=== PATIENT | female | born 1970 | race Asian ===

== ENCOUNTER → 2017-02-05 | Outpatient (CLI) | payer OTHER | LOC: BMCIMAGING 11:08 | DX: Z12.31 Encounter for screening mammogram for malignant neoplasm of breast (principal) | CPT/HCPCS: G0202 ==

== ENCOUNTER 2017-04-21 22:04 | Emergency (ER) | payer OTHER ==
[2017-04-21 22:40] VITALS: RESP 16
--- NOTE | 2017-04-21 23:28 | EDPHY ---
H & P Time Seen by Provider: 04/21/17 22:31 HPI/ROS: CHIEF COMPLAINT: Finger lacerations HISTORY OF PRESENT ILLNESS: 46-year-old female was caring a pyrexia discharge into the house when she stumbled and fell. She has multiple lacerations on both hands from the glass. Most significant laceration is at the distal pad of her 3rd finger, left hand. Bleeding is controlled with pressure. She did not strike her head. No loss of consciousness. No neck pain. No chest pain or shortness of breath. No abdominal pain. She reports this was a mechanical trip and fall. She has no significant wrist pain, elbow pain, or shoulder pain. She was otherwise well. REVIEW OF SYSTEMS: Aside from elements discussed in the HPI, a comprehensive 10-point review of systems was reviewed and is negative. PAST MEDICAL HISTORY: Patient denies. SOCIAL HISTORY: Nonsmoker. GENERAL APPEARANCE: Well-developed, well-nourished female. Appropriate. Alert. FOCUSED EXAM OF hands: Left hand: 2 cm Curvilinear laceration on the distal pad of the 3rd digit. Bleeding is controlled. Laceration is a flap-type laceration. Patient also has a 4 mm superficial laceration on the radial aspect , 4th digit, at the distal tip. Partial thickness laceration is present on the ulnar aspect of the right hand. Neurovascular exam: Brisk capillary refill to all fingers. Neurovascularly intact. Normal motor exam in all fingers. Smoking Status: Never smoked Constitutional: Initial Vital Signs Temperature (C) 36.6 C 04/21/17 22:15 Heart Rate 64 04/21/17 22:15 Respiratory Rate 16 04/21/17 22:15 Blood Pressure 101/64 04/21/17 22:15 O2 Sat (%) 97 04/21/17 22:15 O2 Delivery Mode Room Air Allergies/Adverse Reactions: ciprofloxacin [From Cipro] Allergy (Verified 04/21/17 22:33) Home Medications: Medication Instructions Recorded NK [No Known Home Meds] 04/21/17 Medical Decision Making Procedures: Procedure: Laceration repair. The 2 cm laceration on the 3rd digit, left hand, palmar aspect was anesthetized using digital block of lidocaine without epinephrine The wound was cleaned and irrigated per nursing and tech documentation. Laceration was then draped and explored. There were no deep structures involved. No tendon injury was identified. The wound was repaired with simple interrupted, 5 0 sutures. The wound repair was simple. The procedure was performed by myself. Patient is aware the laceration will have a scar. ED Course/Re-evaluation: 46 Year old female with multiple lacerations to her hands after dropping a pyrex dish when she stumbled coming inside of her house from the patio. Lacerations were cleaned and dressed per nursing and tech documentation. Laceration at the distal tip of the left middle finger was repaired with sutures. Please see the procedure note. Patient tolerated in the procedure well. Differential Diagnosis: Differential diagnosis for the patient's injury was considered including but not limited to contusion, abrasion, laceration, fracture, open fracture, or dislocation. Departure - Departure Disposition: Home, Routine, Self-Care Clinical Impression: Laceration Condition: Good Instructions: Finger Laceration (ED) Additional Instructions: Keep wound clean and dry. Clean suture line with a mixture of hydrogen peroxide and water. Apply a thin layer of antibiotic cream. Dress wound if desired. Suture removal in 10 days. Watch for signs of infection. No soaking wound in water. Showers are ok. No swimming until sutures are removed. Use Tylenol, ibuprofen, or Aleve as needed for pain. Return to emergency department if any concerns regarding infection. Referrals: Monica King MD [Primary Care Provider] - As per Instructions
[2017-04-21 23:55] VITALS: BP 107/63; PULSE 63; TEMP 98.1; O2SAT 96
== END 2017-05-02 14:42 | disposition home or self-care (01) ==
LOC: CED 22:04
PROC: 0HQGXZZ Repair Left Hand Skin, External Approach (ICD-10-PCS; principal; 2017-04-21)
DX: S61.213A Laceration without foreign body of left middle finger without damage to nail, initial encounter (principal); W25.XXXA Contact with sharp glass, initial encounter; Y92.009 Unspecified place in unspecified non-institutional (private) residence as the place of occurrence of the external cause

== ENCOUNTER → 2018-10-29 | Outpatient (CLI) | payer OTHER | LOC: BMCIMAGING 13:01 | PROVIDERS: ATTEND Obstetrics & Gynecology | DX: Z12.31 Encounter for screening mammogram for malignant neoplasm of breast (principal) ==

== ENCOUNTER 2019-02-14 18:05 | Emergency (ER) | payer OTHER ==
[2019-02-14 18:21] VITALS: BP 126/82
--- NOTE | 2019-02-14 18:36 | EDPHY ---
H & P Time Seen by Provider: 02/14/19 18:15 HPI/ROS: CHIEF COMPLAINT: Finger laceration HISTORY OF PRESENT ILLNESS: Patient states that she cut her right middle finger with a knife in the kitchen while cutting potatoes. This occurred about 1 hr prior to arrival. She denies any numbness or weakness. She states her tetanus vaccination is less than 10 years ago. No other complaints. REVIEW OF SYSTEMS: Negative except per HPI. General Appearance: Alert, no distress. Eyes: Pupils equal and round no icterus Respiratory: No respiratory distress Neurological: Awake, alert, no focal deficits. Skin: Warm and dry, no rashes. Musculoskeletal: Neck is supple nontender. Extremities are symmetrical, full range of motion, no edema. 1.5 cm avulsion type laceration to the radial aspect of the distal phalanx of the right middle finger. No nail involvement. Normal sensation distally. Normal tendon function. Psychiatric: Patient is oriented X 3, there is no agitation. Medical/surgical history: None Social history: Nonsmoker Smoking Status: Never smoked Constitutional: Initial Vital Signs Temperature (C) 36.4 C 02/14/19 18:14 Heart Rate 55 L 02/14/19 18:14 Respiratory Rate 16 02/14/19 18:14 Blood Pressure 126/82 H 02/14/19 18:14 O2 Sat (%) 95 02/14/19 18:14 O2 Delivery Mode Room Air Allergies/Adverse Reactions: ciprofloxacin [From Cipro] Allergy (Verified 02/14/19 18:13) Home Medications: Medication Instructions Recorded NK [No Known Home Meds] 04/21/17 Medical Decision Making Procedures: Procedure: Laceration repair. Verbal consent was obtained from the patient. The 1.5 cm right middle finger laceration on the distal phalange was anesthetized at 6:30 p.m. in the usual fashion. The wound was irrigated, draped and explored to its base with a gloved finger. There were no deep structures involved. No tendon injury was identified. The wound was repaired with 4 0 Prolene. The wound repair was 5 simple interrupted sutures. The procedure was performed by myself at 7:00 p.m.. Differential Diagnosis: Finger laceration as described above. Uncomplicated repair. Tetanus vaccination up-to-date. Reviewed signs symptoms of infection and wound care at home. Suture removal in 12-14 days. Departure - Departure Clinical Impression: Laceration Condition: Good Instructions: Care For Your Stitches (ED), Laceration (ED) Additional Instructions: Keep clean, apply antibiotic ointment and bandage after washing. You can take the dressing off tomorrow and bathe in the shower as normal. Return to the emergency department right away for signs of infection including increased redness, swelling, pain or pus. Otherwise suture removal in 12-14 days. Referrals: Monica King MD [Primary Care Provider] - As per Instructions
== END 2019-02-14 19:43 | disposition home or self-care (01) ==
LOC: CED 18:05
PROC: 0HQDXZZ Repair Right Lower Arm Skin, External Approach (ICD-10-PCS; principal; 2019-02-14)
DX: S61.212A Laceration without foreign body of right middle finger without damage to nail, initial encounter (principal); W26.0XXA Contact with knife, initial encounter; Y92.000 Kitchen of unspecified non-institutional (private) residence as the place of occurrence of the external cause; Y93.G1 Activity, food preparation and clean up
CPT/HCPCS: 99282-ER